=== PATIENT | female | born 1940 | race Caucasian/White ===

== ENCOUNTER → 2022-02-15 13:18 | Outpatient (BNVA) | payer MEDICARE, MEDICAID, SELFPAY | PROVIDERS: PCP Nurse Practitioner Family; Visit Provider Nurse Practitioner Family | DX: B02.9 Zoster without complications (principal); I10 Essential (primary) hypertension | CPT/HCPCS: 80053 ==

== ENCOUNTER → 2022-11-29 10:07 | Outpatient (BNVA) | payer MEDICARE, MEDICAID, SELFPAY | PROVIDERS: PCP Nurse Practitioner Family; Visit Provider Nurse Practitioner Family | DX: R53.83 Other fatigue (principal); I10 Essential (primary) hypertension; F41.9 Anxiety disorder, unspecified | CPT/HCPCS: 80053; 80061; 84443; 85025 ==

== ENCOUNTER 2022-12-25 12:20 | Outpatient (CLI) | payer MEDICARE, MEDICAID, SELFPAY ==
--- NOTE | 2022-12-25 12:15 | CT_ITS ---
WS: [id number] CT HEAD TECHNIQUE: Noncontrast CT of the head obtained from the skullbase to the vertex. CLINICAL INFORMATION: S09.90XA - Unspecified injury of head, initial encounter COMPARISON: None. DLP: 611.[address] scans at [facility] use at least one of these dose optimization techniques: automated e xposure control; mA and/or kV adjustment per patient size (includes targeted exams where dose is matc hed to clinical indication); or iterative reconstruction. FINDINGS: No evidence of intracranial hemorrhage or mass effect. Ventricular system and basal cisterns are barakat nt. Mild small vessel changes with mild parenchymal volume loss. No extra-axial fluid collections. No evidence of mass or mass effect. Paranasal sinuses and mastoid air cells are well aerated. .Normal visualized soft tissues. CT/CT head wo con* [id number] IMPRESSION: 1. No evidence of intracranial hemorrhage or mass effect. 2. Mild small vessel changes. Mild parenchymal volume loss. 3. Vascular calcification. 4. No acute intracranial findings.
--- NOTE | 2022-12-25 12:28 | XR_ITS ---
WS: [email or web address] Exam: XR cervical spine 3V* [id number] Date/Time of Exam: 12/25/2022 12:27 PM Reason For Exam: M54.2 - Cervicalgia No acute fracture or dislocation. Degenerative anterolisthesis of C5 on C6 with about 3.3 mm forward movement of C5. 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 Disc spaces are relatively well maintained. Exaggerated cerv ical lordosis. The odontoid is intact. Normal paraspinal soft tissues. XR/XR cervical spine 3V* [id number] IMPRESSION: 1. Degenerative anterolisthesis of C5 on C6 with about 3.3 mm forward movement of C5. 2. No fracture or dislocation. 3. 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 Exaggerated cervical lordosis.
--- NOTE | 2022-12-25 12:28 | XR_ITS ---
WS: [email or web address] Exam: XR thoracic spine 3V* [id number] Date/Time of Exam: 12/25/2022 12:27 PM Reason For Exam: M54.6 - Pain in thoracic spine No acute fracture or dislocation. There is spondylosis. Mild mid thoracic levoscoliosis. Exaggerated upper thoracic kyphosis. Osteopenia. Normal paraspinal soft tissues. XR/XR thoracic spine 3V* [id number] IMPRESSION: 1. No acute fracture or malalignment. 2. Levoscoliosis and exaggerated upper thoracic kyphosis. Osteopenia and degene rative changes.
== END 2022-12-25 12:21 | disposition home or self-care (01) ==
LOC: RAD 12:24
PROVIDERS: PCP Nurse Practitioner Family; Visit Provider Nurse Practitioner Family
DX: S09.90XA Unspecified injury of head, initial encounter (principal); X58.XXXA Exposure to other specified factors, initial encounter; M54.6 Pain in thoracic spine; M47.892 Other spondylosis, cervical region
CPT/HCPCS: 70450; 72040; 72072

== ENCOUNTER 2023-01-12 06:26 | Outpatient (CLI) | payer MEDICARE, MEDICAID, SELFPAY ==
--- NOTE | 2023-01-12 07:15 | MR_ITS ---
WS: [id number] MRI CERVICAL SPINE NONCONTRAST HISTORY: M54.2 - Cervicalgia COMPARISON: Radiographs 12/25/2022 Technique: Multiplanar, multisequence noncontrast imaging of the cervical spine. Marked increase in cervical lordosis and kyphosis of the upper thoracic spine. Small osteophyte from C4 project posteriorly by 2 mm. No cervical spine fractures. No marrow edema. Mild disc space narrowi ng and desiccation. Signal within the cervical cord is normal. Visualized posterior fossa is unremarkable. Mild ventricul ar dilatation similar to the prior head CT from 12/25/2022. Craniocervical junction, C1 and C2 relationship, odontoid process and soft tissues are normal. C2-C3: Normal. C3-C4: Minimal foraminal narrowing. C4-C5: Very slight disc bulging. No high-grade stenosis. C5-C6: Small central disc protrusion. Mild RIGHT foraminal stenosis. There is probably a small disc o steophyte complex. No LEFT foraminal stenosis. C6-C7: No central stenosis. Foramen are poorly visualized. There is probably mild stenosis. C7-T1: No stenosis identified. Paravertebral soft tissues are negative. MR/MR cervical spin wo con* [id number] IMPRESSION: 1. Marked increase in the cervical lordosis. 2. No acute cervical spine fracture. 3. Mild RIGHT foraminal stenosis at C5-6. Probably due to small disc osteophyt e complex. 4. Mild foraminal stenosis at C6-7. 5. No high-grade central stenosis.
== END 2023-01-12 06:27 | disposition home or self-care (01) ==
LOC: RAD 06:30
PROVIDERS: PCP Nurse Practitioner Family; Visit Provider Nurse Practitioner Family
DX: M54.2 Cervicalgia (principal); M48.02 Spinal stenosis, cervical region
CPT/HCPCS: 72141

== ENCOUNTER → 2023-01-16 10:09 | Outpatient (BNVA) | payer MEDICARE, MEDICAID, SELFPAY | PROVIDERS: PCP Nurse Practitioner Family; Referring Provider Nurse Practitioner Family; Visit Provider Orthopaedic Surgery | DX: M54.2 Cervicalgia (principal); R26.89 Other abnormalities of gait and mobility | CPT/HCPCS: 72050; 99204 ==

== ENCOUNTER → 2023-04-19 10:01 | Outpatient (BNVA) | payer MEDICARE, MEDICAID, SELFPAY | PROVIDERS: PCP Nurse Practitioner Family; Visit Provider Internal Medicine Cardiovascular Disease | DX: R06.02 Shortness of breath (principal); R00.2 Palpitations | CPT/HCPCS: 99203 ==

== ENCOUNTER 2023-05-03 08:30 | Outpatient (CLI) | payer MEDICARE, MEDICAID, SELFPAY ==
--- NOTE | 2023-05-03 09:00 | USCV_ITS ---
Laurel Centeno Age: 83 Gender: F : 1940 Exam Date: 05/03/2023 09:13 Ordering Phys: Cristian Monique MD ([email or web address]) Technologist: MARILYN Exam Location: [facility] [place] Indication: SHORTNESS OF BREATH BP: 122 / 50 HR: 52 Rhythm: Sinus Technical Quality: Adequate MEASUREMENTS (Male / Female) Normal Values 2D ECHO LVOT Diameter 1.8 cm LV Ejection Fraction MOD 2C 69.0 % LV Ejection Fraction 2C AL 69.3 % LA Diameter 2.5 cm LA Width 3.0 cm LA Height 3.8 cm RA Width 3.0 cm RA Height 3.3 cm Aorta at Sinotubular Diameter 2.1 cm IVC Diameter 0.9 cm M-MODE Aortic Annulus Diameter 2.8 cm LA Ao Ratio MM 0.9 MV E Point Septal Separation 0.2 cm DOPPLER AV Peak Velocity 152.0 cm/s LVOT Peak Velocity 115.0 cm/s AV Area Cont Eq vti 1.4 cm squared AV Area Cont Eq pk 1.9 cm squared MV Peak Velocity 150.0 cm/s MV Area PHT 3.4 cm squared Mitral E to A Ratio 0.9 MV E' Velocity 47.0 cm/s Mitral E to MV E' Ratio 10.1 Mitral E to LV E' Lateral Ratio 10.4 Mitral E to LV E' Septal Ratio 10.0 TR Peak Velocity 256.3 cm/s TR Peak Gradient 26.3 mmHg TR Mean Velocity 203.3 cm/s TR Mean Gradient 17.5 mmHg TR Velocity Time Integral 90.6 cm TV Peak E Velocity 22.0 cm/s Right Atrial Pressure 3.0 mmHg Pulmonary Artery Systolic Pressu 29.3 mmHg PV Peak Velocity 184.0 cm/s RV Acceleration Time 0.1 s RV Ejection Time 0.3 s RV AcT/ET 0.4 FINDINGS Left Ventricle Normal left ventricular size, systolic function and wall thickness, with no regional wall motion abnormalities. Left ventricular ejection fraction is estimated at 65-70 %. Normal diastolic function. Right Ventricle Normal right ventricular size and systolic function. Right ventricular systolic pressure 29.3 mmHg. Right Atrium Normal right atrial size. Left Atrium Mildly increased left atrial size. Mitral Valve Structurally normal mitral valve. No mitral valve stenosis. Trace mitral valve regurgitation. Aortic Valve Structurally normal trileaflet aortic valve. No aortic valve stenosis. No aortic valve regurgitation. Tricuspid Valve Structurally normal tricuspid valve. No tricuspid valve stenosis. Trace tricuspid valve regurgitation. Pulmonic Valve Pulmonic valve not well visualized. No pulmonary valve stenosis. Trace pulmonary valve regurgitation. Pericardium No pericardial effusion. Aorta Normal size aortic root and proximal ascending aorta. IVC Normal IVC dimension with >50% respiratory change of the inferior vena cava. CONCLUSIONS 1. Normal left ventricular size, systolic function and wall thickness, with no regional wall motion abnormalities. Left ventricular ejection fraction is estimated at 65-70 %. Normal diastolic function. 2. No significant valvular abnormality. 3. Pulmonary artery pressure estimated at 29 mm Hg. 4. No prior similar studies to compare. Hellen Gomez MD (Electronically Signed) Final Date: 13 May 2023 23:06 S
== END 2023-05-03 08:31 | disposition home or self-care (01) ==
LOC: RAD 08:32
PROVIDERS: PCP Nurse Practitioner Family; Visit Provider Internal Medicine Cardiovascular Disease
DX: R06.02 Shortness of breath (principal)
CPT/HCPCS: 93306